=== PATIENT | male | born 1980 | race African-American/Black ===

== ENCOUNTER 2018-11-21 20:07 | Emergency (ER) | payer MEDICAID ==
[~2018-11-21] VITALS: Ht 170.2 cm; Wt 83.0 kg
[2018-11-21] MEDS ORDERED: HYDROCODONE/ACETAMINOPHEN 5/325MG TABLET PO ONE (22:45)
[2018-11-21 23:24] VITALS: BP 134/82
== END 2018-11-21 23:26 | disposition home or self-care (01) ==
LOC: ER 20:07
DX: L02.31 Cutaneous abscess of buttock (principal); I10 Essential (primary) hypertension; Z88.0 Allergy status to penicillin; Z98.890 Other specified postprocedural states; Z96.651 Presence of right artificial knee joint
CPT/HCPCS: 99283

== ENCOUNTER 2019-11-01 09:24 | Emergency (ER) | payer MEDICAID ==
[~2019-11-01] VITALS: Ht 172.7 cm; Wt 78.0 kg
[2019-11-01] MEDS ORDERED: AZITHROMYCIN 500 MG TABLET PO ONE (10:15)
[2019-11-01] MEDS ORDERED: CEFTRIAXONE SODIUM 250 MG/VIAL IM ONE (10:15)
[2019-11-01 10:35] LABS: CLARITY URINE CLEAR (CLEAR); COLOR URINE YELLOW (YELLOW); KETONES URINE NEGATIVE (NEGATIVE); LEUKOCYTE ESTERASE URINE 3+ (NEGATIVE); NITRITE URINE NEGATIVE (NEGATIVE); OCCULT BLOOD URINE NEGATIVE (NEGATIVE); PROTEIN URINE NEGATIVE (NEGATIVE); SPECIFIC GRAVITY URINE 1.017 (1.005-1.030); UROBILINOGEN URINE 0.2 E.U./dL (0.2-1.0)
[2019-11-01 11:32] VITALS: BP 148/76
[2019-11-03 04:11] LABS: NEISSERIA GONORRHOEAE NAA Positive (Negative)
== END 2019-11-01 11:32 | disposition home or self-care (01) ==
LOC: ER 09:24
DX: Z11.3 Encounter for screening for infections with a predominantly sexual mode of transmission (principal); N39.0 Urinary tract infection, site not specified; Z88.0 Allergy status to penicillin; Z98.890 Other specified postprocedural states
CPT/HCPCS: 81003; 87086; 87491; 87591; 96372; 99283; J0696; 96375

== ENCOUNTER 2020-09-24 17:10 | Emergency (ER) | payer MEDICAID ==
[~2020-09-24] VITALS: Ht 170.2 cm; Wt 79.0 kg
[2020-09-24] MEDS ORDERED: ONDANSETRON HCL 4MG/2ML INJ IV STA (17:36)
[2020-09-24] MEDS ORDERED: FAMOTIDINE 20MG/2ML VIAL IV STA (17:36)
[2020-09-24] MEDS ORDERED: SODIUM CHLORIDE 0.9% 1,000 ML IV ONE (17:45)
[2020-09-24 18:05] LABS: BASOPHILS % 0.9 % (0.0-2.0); EOSINOPHILS % 1.3 % (0.0-5.0); HEMATOCRIT. 45.6 % (42.0-52.0); HEMOGLOBIN. 15.7 g/dL (14.0-18.0); LYMPHOCYTES % 11.8 % (20.0-50.0); MEAN CORPUSCULAR HEMOGLOBIN 28.9 pg (28.0-32.0); MEAN CORPUSCULAR VOLUME 84.1 fL (80.0-94.0); MEAN PLATELET VOLUME 8.3 fl (7.4-10.4); MONOCYTES % 4.4 % (2.0-8.0); NEUTROPHILS % 81.6 % (40.0-76.0); PLATELET 214 x1000/uL (130-400); RED BLOOD CELL COUNT 5.43 mill/uL (4.7-6.1); RED CELL DISTRIBUTION WIDTH 15.2 % (11.6-14.6)
[2020-09-24 18:09] LABS: CHLORIDE 105 mEq/L (98-107)
[2020-09-24 18:11] LABS: PROTHROMBIN TIME 10.7 sec (9.6-11.0)
[2020-09-24 18:14] LABS: ETHANOL BLOOD < 10 mg/dL
[2020-09-24 19:30] VITALS: BP 148/85
[2020-09-24] MEDS ORDERED: ONDA4TAB5 PO (19:51)
== END 2020-09-24 20:07 | disposition home or self-care (01) ==
LOC: ER 17:10
DX: R10.9 Unspecified abdominal pain (principal); K92.0 Hematemesis; R03.0 Elevated blood-pressure reading, without diagnosis of hypertension; F12.90 Cannabis use, unspecified, uncomplicated; Z88.0 Allergy status to penicillin
CPT/HCPCS: 36415; 80053; 80320; 83690; 85025; 85610; 86850; 86900; 86901; 93005; 96361; 96374; 96375; 99284; J2405; J3490; J7030; G0480

== ENCOUNTER 2020-12-03 07:55 | Emergency (ER) | payer BC, MEDICAID ==
[~2020-12-03] VITALS: Ht 170.2 cm; Wt 77.0 kg
[~2020-12-03 07:55] MED LIST: ONDA4TAB5 PO
[2020-12-03 07:56] VITALS: BP 116/82
[2020-12-03] MEDS ORDERED: LIDOCAINE HCL/PF 1% 10 MG/ML 5ML VIAL IJ ONE (08:15)
[2020-12-03] MEDS ORDERED: TOPUD PO (08:15)
[2020-12-03] MEDS ORDERED: CLIN300C12 MT (08:15)
== END 2020-12-03 08:34 | disposition home or self-care (01) ==
LOC: ER 08:10
DX: L03.012 Cellulitis of left finger (principal); F12.90 Cannabis use, unspecified, uncomplicated; Z88.0 Allergy status to penicillin
CPT/HCPCS: 10060; 99282; Z7610